=== PATIENT | female | born 1940 | race Caucasian/White ===

== ENCOUNTER → 2017-03-06 | Outpatient (CLI) | payer OTHER, MEDICARE | LOC: CIMAGING 10:24 | PROVIDERS: ATTEND Family Medicine | DX: Z12.31 Encounter for screening mammogram for malignant neoplasm of breast (principal) | CPT/HCPCS: G0202 ==

== ENCOUNTER 2017-06-10 15:28 | Emergency (ER) | payer OTHER, MEDICARE ==
[2017-06-10] MEDS ORDERED: NS 500 ML IV ONE (15:41)
[2017-06-10] MEDS ORDERED: DIAZEPAM 5 MG TAB PO ONE (16:07)
[2017-06-10] MEDS ORDERED: DIAZEPAM 5 MG TAB ONE (16:07)
[2017-06-10] MEDS ORDERED: ONDANSETRON DISINTEGRATING 4 MG TAB PO ONE (16:10)
--- NOTE | 2017-06-10 16:12 | EDPHY ---
H & P Time Seen by Provider: 06/10/17 15:35 HPI/ROS: This patient plan but onset of right low back pain accompanied by vomiting x1. The patient explains that she was cleaning house in was bending forward she felt abrupt onset of sharp right paraspinous lumbar pain low down in her back that radiated toward the front described as 10/10 pain. The pain is sharp in nature. She was near her bed at that time and laid down unable to move for. Time due to the severity of the pain. She took 600 mg of ibuprofen-the 1st dose was 400 mg 90 minutes prior to arrival shortly after the incident occurred and another 200 mg just before coming in. On the way and the patient vomited x1. She attributes this nausea vomiting due to the severity of the pain. The pain has however now decreased to 4/10. She reports that the wax and wane with no clear exacerbating factors. The pain briefly radiated down her leg but is no longer radiating down the leg. The pain radiates to the right lower belly and is described as mild in the right lower belly to 3/10 achy in nature. She has driven here by private vehicle by her for further evaluation of her symptoms. ROS: No fevers or chills recently. Neuro: No numbness tingling or focal weakness. HEENT: She complains of nasal congestion over the past week or so. Pulmonary - she has a cough with feeling of chest congestion and mild increase in her shortness of breath over the past 2 days associated with this. She has chronic baseline at shortness of breath since or lobectomies as well. No pleuritic pain. No hemoptysis. Cardiovascular: No chest pain or heart palpitations. No leg pain or swelling. GI: As per HPI. No hematemesis. Today's emesis was yellow. Normal bowel movements recently. Currently 2/10 right lower quadrant abdominal pain associated with this. : She has not noticed any dysuria or hematuria recently. 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 She also reports bladder cancer and has a urologic procedure-bladder resection every 6 months or so with Dr. Dionicio Esparza-urologist. She reports this is "malignant" Pulmonary embolism complicated postop course after her 2015 lobectomy Other surgical history: Appendectomy Hysterectomy Smoking Status: Former smoker Physical Exam: General Appearance: Alert, no distress. Eyes: Pupils equal and round no pallor or injection. ENT, Mouth: Mucous membranes moist. Respiratory: There are no retractions, lungs are clear to auscultation. Cardiovascular: Regular rate and rhythm. No murmur gallop rub. No lower extremity swelling or tenderness Gastrointestinal: Normoactive, soft, minimal right lower quadrant tenderness Back: Patient has an area of muscle spasm and tenderness in the right lower lumbar paraspinous region reproduces her symptoms elicits more muscle spasm. Straight leg raise is negative bilaterally. She maintains good range of motion in forward flexion and back extension without change in her pain. Neurological: GCS 15. She maintains 2+ symmetric patellar and Achilles DTRs bilaterally in 5/5 strength in great toe dorsiflexion plantar flexion bilaterally. Skin: Warm and dry, no rashes. Musculoskeletal: Neck is supple nontender. Extremities are symmetrical, full range of motion. Psychiatric: Mood and affect normal DIFFERENTIAL DIAGNOSIS: After history and physical exam differential diagnosis was considered for bony Mets with pathological fracture and lumbar spine, low back strain with muscle spasm, disc herniation, bowel obstruction, ureteral stone, volvulus, mesenteric thrombus, bronchitis, pneumonia Constitutional: Initial Vital Signs Temperature (C) 37 C 06/10/17 15:44 Heart Rate 82 06/10/17 15:44 Respiratory Rate 16 06/10/17 15:44 Blood Pressure 141/93 H 06/10/17 15:44 O2 Sat (%) 94 06/10/17 15:44 O2 Delivery Mode Room Air O2 (L/minute) 2 Allergies/Adverse Reactions: No Known Allergies Allergy (Verified 06/10/17 15:42) Home Medications: Medication Instructions Recorded Pantoprazole Sodium [Protonix 40mg 40 mg PO DAILY PRN 08/18/14 (*)] Cefdinir [Omnicef (RX)] 300 mg PO BID #14 cap 06/10/17 Ondansetron Odt [Zofran Odt] 4 - 8 mg PO Q4PRN PRN #4 tab 06/10/17 oxyCODONE/APAP 5/325 [Percocet 1 - 2 tab PO Q4-6PRN PRN #15 tab 06/10/17 5/325 (*)] MDM/Departure - MDM Diagnostics: Two view chest x-ray: No acute abnormalities by my interpretation Imaging Results: Imaging Impressions Lumbar Spine X-Ray 06/10/17 16:07 Impression: 1. No acute fracture. 2. Multilevel degenerative disk and facet arthropathy. Chest X-Ray 06/10/17 16:13 Impression: 1. No pneumonia. 2. New retrosternal density, could possibly indicate complete right upper lobe atelectasis. Consider chest CT for further evaluation. Results called to Dr. Murcia at 5:[address] 06/10/17 17:48 Impression: 1. Moderate hiatal hernia. Might the patient's cough the related to reflux? 2. No pneumonia. 3. No evidence of recurrent or metastatic lung cancer. 4. The finding on the patient's chest x-ray is related to epicardial fat. Results discussed with Dr. Jerman Murcia at 7:00 PM. General information for patients regarding this examination can be found at [employer]. If you have questions or comments about this report, please contact me at [phone] ([facility]) or [phone] (cell). Abdomen/Pelvis CT 06/10/17 18:08 Impression: Severe right urinary tract obstruction related to a small stone that is about to pass into the urinary bladder. Results called to Dr. Jerman Murcia at 6:52 PM Attention: This CT examination is specifically designed to evaluate patients who are clinically suspected of having acute obstructive uropathy. This examination does not use radiographic contrast, and as such, provides only a limited evaluation of the abdomen, pelvis and retroperitoneum. If there is further clinical suspicion for pathological conditions other than obstructive uropathy, a complete CT evaluation of the abdomen and pelvis utilizing intravenous, oral, and rectal contrast should be considered. General information for patients regarding this examination can be found at [employer]. If you have questions or comments about this report, please contact me at ([facility]) or [phone] (cell). Imaging: Discussed imaging studies w/ extruding department supervisor Radiologist, I viewed and interpreted images myself Medications Given: Discontinued Medications Hydrocodone Bitart/Acetaminophen ([place] 5/325) 1 tab PO EDNOW ONE Stop: 06/10/17 16:20 Last Admin: 06/10/17 16:20 Dose: 1 tab Diazepam (Valium) 5 mg PO EDNOW ONE Stop: 06/10/17 16:08 Last Admin: 06/10/17 16:13 Dose: 5 mg Diphenhydramine HCl (Benadryl Injection) 25 mg IVP EDNOW ONE Stop: 06/10/17 18:56 Last Admin: 06/10/17 19:12 Dose: 25 mg Hydromorphone HCl (Dilaudid) 0.4 mg IVP EDNOW ONE Stop: 06/10/17 18:08 Last Admin: 06/10/17 18:00 Dose: 0.4 mg Sodium Chloride (Ns) 500 mls @ 1,000 mls/hr IV EDNOW ONE PRN Reason: Protocol Stop: 06/10/17 16:10 Last Admin: 06/10/17 16:45 Dose: 500 mls Ceftriaxone Sodium 1 gm/ (Sodium Chloride) 100 mls @ 200 mls/hr IV EDNOW ONE PRN Reason: Protocol Stop: 06/10/17 18:33 Last Admin: 06/10/17 18:58 Dose: 100 mls Sodium Chloride (Ns) 1,000 mls @ 0 mls/hr IV ONCE ONE; Wide Open PRN Reason: Protocol Stop: 06/10/17 18:32 Last Admin: 06/10/17 19:03 Dose: 1,000 mls Ketorolac Tromethamine (Toradol) 15 mg IVP EDNOW ONE Stop: 06/10/17 19:04 Last Admin: 06/10/17 19:13 Dose: 15 mg Metoclopramide HCl (Reglan Injection) 10 mg IVP EDNOW ONE Stop: 06/10/17 18:56 Last Admin: 06/10/17 19:13 Dose: 10 mg Morphine Sulfate (Morphine) 4 mg IVP EDNOW ONE Stop: 06/10/17 16:28 Last Admin: 06/10/17 17:26 Dose: 4 mg Ondansetron HCl (Zofran Odt) 4 mg PO EDNOW ONE Stop: 06/10/17 16:11 Last Admin: 06/10/17 16:16 Dose: 4 mg Ondansetron HCl (Zofran) 4 mg IVP EDNOW ONE Stop: 06/10/17 17:14 Last Admin: 06/10/17 17:25 Dose: 4 mg ED Course/Re-evaluation: IV access required 3 attempts prior to success. She is treated with sublingual Zofran for nausea during this. She also received 5 mg Valium dose orally and a Percocet dose for which she perceived as low back spasms initially Patient had emesis. IV is established on patient started on a normal saline bolus, IV Zofran with initial relief of his nausea, 4 mg morphine IV With her current nausea vomiting and ongoing pain severe intensity colicky in nature. Patient then treated with Reglan 10 mg IV, Benadryl 25 mg IV and Dilaudid 0.4 mg IV finally with relief down to 3/10 pain followed by Toradol 15 mg IV Initial normal saline boluses 500 mL. She is then treated with a L normal saline bolus. Dr. Brand called to discuss the chest x-ray concerned about potential retrocardiac mass since prior chest x-ray. Given this patient's history of squamous cell carcinoma with 2 lobectomies his well as history of coughing currently, he suggested proceeding with CT chest with IV contrast for further evaluation Review of the patient's urinalysis shows both pyuria and hematuria as well as bacteria. Given this finding in the colicky nature of her pain will also proceed with CT abdomen pelvis without contrast. I reviewed the patient's radiographic findings with her-CT chest revealed no pneumonia or recurrence of cancer. The plain film finding noted by Dr. Brand correspond to a retrocardiac fat pad. The CT abdomen pelvis revealed a 3 mm distal ureteral stone with significant associated hydronephrosis on the right side. Patient is treated with ceftriaxone 1 g IV and urine culture added on. This is to treat her pyuria and bacteria concerning for UTI associated with ureteral stone. The time discharge patient feels significantly improved with resolution of nausea vomiting. She is tolerating p.o. intake. Her pain is down to minimal discomfort. I counseled her regarding her diagnosis of the distal ureteral stone and UTI. Will send her out on Omnicef, Zofran plan for ibuprofen and Percocet in addition if needed. She will follow up Dr. Martinez, urologist for any ongoing symptoms despite the treatment plan. - Depart Disposition: Home, Routine, Self-Care Clinical Impression: Ureteral stone with hydronephrosis Urinary tract infection Qualifiers: Urinary tract infection type: site unspecified Hematuria presence: with hematuria Qualified Code(s): N39.0 - Urinary tract infection, site not specified Vomiting Qualifiers: Vomiting type: unspecified Vomiting Intractability: non-intractable Nausea presence: with nausea Qualified Code(s): R11.2 - Nausea with vomiting, unspecified Condition: Good Instructions: Oxycodone/Acetaminophen (By mouth), Urinary Tract Infection in Women (ED), Ureteral Stones (ED) Additional Instructions: Diagnoses: 1. Ureteral stone with hydronephrosis 2. Urinary tract infection 3. Cough 4. Cough Plan: Drink plenty fluids Omnicef antibiotic-1st dose tomorrow [id number] mg per 6 hours few times a day as needed for pain Tylenol or Percocet in addition if needed. No driving, alcohol or come Percocet Zofran for nausea vomiting if needed Filter your urine to document passage of the stone Follow up with urologist for any ongoing symptoms despite treatment plan Return for any significant worsening despite treatment plan. Prescriptions: Cefdinir [Omnicef (RX)] 300 mg PO BID #14 cap Ondansetron Odt [Zofran Odt] 4 - 8 mg PO Q4PRN PRN #4 tab PRN Reason: Vomiting oxyCODONE/APAP 5/325 [Percocet 5/325 (*)] 1 - 2 tab PO Q4-6PRN PRN #15 tab PRN Reason: Pain Referrals: Leydi Morales MD [Primary Care Provider] - As per Instructions Osiel Martinez MD [Medical Doctor] - As per Instructions
[2017-06-10] MEDS ORDERED: HYDROCODONE/APAP 5/325 TAB ONE (16:18)
[2017-06-10] MEDS ORDERED: HYDROCODONE/APAP 5/325 TAB PO ONE (16:19)
[2017-06-10 16:29] LABS: % IMMATURE GRANULYOCYTES 1.3 % (0.0-1.1); ABSOLUTE IMMATURE GRANULOCYTES 0.11 10^3/uL (0.00-0.10); ADD DIFF? NO; ADD MORPH? NO; ADD SCAN? NO; ATYPICAL LYMPHOCYTE FLAG 10 (0-99); FRAGMENT RBC FLAG 0 (0-99); HEMATOCRIT 39.8 % (38.0-47.0); HEMOGLOBIN 13.4 g/dL (12.6-16.3); LEFT SHIFT FLG 10 (0-99); LIPEMIA HEMOLYSIS FLAG 80 (0-99); MEAN CELL HEMOGLOBIN 31.5 pg (27.9-34.1); MEAN CELL HEMOGLOBIN CONCENTR. 33.7 g/dL (32.4-36.7); MEAN CELL VOLUME 93.4 fL (81.5-99.8); MEAN PLATELET VOLUME 9.6 fL (8.7-11.7); PLATELET CLUMPS FLAG 10 (0-99); PLATELET COUNT 325 10^3/uL (150-400); RED BLOOD CELL COUNT 4.26 10^6/uL (4.18-5.33); RED CELL DISTRIBUTION WIDTH 12.9 % (11.5-15.2)
[2017-06-10 16:43] LABS: ANION GAP 17 mEq/L (8-16); CALCIUM 10.1 mg/dL (8.5-10.4); CARBON DIOXIDE 24 mEq/l (22-31); CHLORIDE 100 mEq/L (97-110); CREATININE 0.7 mg/dL (0.6-1.0); GLOMERULAR FILTRATION RATE > 60; GLUCOSE 128 mg/dL (70-100); POTASSIUM 3.8 mEq/L (3.5-5.2); SODIUM 141 mEq/L (134-144)
[2017-06-10] MEDS ORDERED: ONDANSETRON 4 MG/2 ML VIAL IVP ONE (17:13)
[2017-06-10 17:18] LABS: COLOR YELLOW; LEUKOCYTE ESTERASE,URINE 2+ (NEGATIVE); NITRITE,URINE NEGATIVE (NEGATIVE); PH,URINE 5.5 (5.0-7.5)
[2017-06-10] MEDS ORDERED: IOPAMIDOL (ISOVUE 370) 100 ML BTL IV ONE (17:18)
[2017-06-10 17:27] LABS: WBC,URINE 15-25 /hpf (0-3)
[2017-06-10 17:28] LABS: BACTERIA 2+ /hpf (NONE SEEN); MUCUS 2+ /lpf (NONE-1+); RBC,URINE 15-25 /hpf (0-3)
[2017-06-10] MEDS ORDERED: HYDROmorphONE/DILAUDID 1 MG/ML INJ IVP ONE (18:07)
[2017-06-10] MEDS ORDERED: NS 1,000 ML IV ONE (18:31)
[2017-06-10] MEDS ORDERED: METOCLOPRAMIDE 10 MG/2 ML VIAL IVP ONE (18:55)
[2017-06-10] MEDS ORDERED: KETOROLAC 15 MG/1 ML SDV IVP ONE (19:03)
[2017-06-10 19:46] VITALS: BP 125/68; PULSE 87; RESP 18; TEMP 97.9; O2SAT 95
== END 2017-06-10 20:10 | disposition home or self-care (01) ==
LOC: CED 15:28
DX: N20.1 Calculus of ureter (principal); N13.30 Unspecified hydronephrosis; N39.0 Urinary tract infection, site not specified; B96.89 Other specified bacterial agents as the cause of diseases classified elsewhere; E86.9 Volume depletion, unspecified; Z85.51 Personal history of malignant neoplasm of bladder; Z85.828 Personal history of other malignant neoplasm of skin; Z87.891 Personal history of nicotine dependence
CPT/HCPCS: 71020; 71260; 72100; 74176; 96361; 96365; 96375; 99285; J0696; J1170; J1200; J1885; J2405; J2765; Q9967; 80048-PO; 81003-PO; 81015-PO; 85025-PO

== ENCOUNTER → 2018-03-10 | Outpatient (CLI) | payer OTHER, MEDICARE | LOC: CIMAGING 08:16 | PROVIDERS: ATTEND Family Medicine | DX: Z12.31 Encounter for screening mammogram for malignant neoplasm of breast (principal); Z80.3 Family history of malignant neoplasm of breast ==

== ENCOUNTER 2018-09-15 06:32 | Emergency (ER) | payer OTHER, MEDICARE ==
[2018-09-15 06:51] VITALS: BP 128/75
--- NOTE | 2018-09-15 07:04 | EDPHY ---
H & P Stated Complaint: Mechanical fall, R shoulder pain Time Seen by Provider: 09/15/18 06:58 HPI/ROS: CHIEF COMPLAINT: Right shoulder pain HISTORY OF PRESENT ILLNESS: Patient is a 58-year-old female who tripped yesterday evening over a dog gait. She fell and landed onto her right shoulder. Her arm was tucked against her body. She has had pain in her right shoulder and clavicle ever since. She has taken ibuprofen for pain with mild improvement. She did not hit her head. She denies neck pain. No weakness numbness or paresthesias. She did not injure her hip. She is ambulating without difficulty. Severity: Moderate Modifying factors: None REVIEW OF SYSTEMS: Constitutional: denies: chills, fever, recent illness, recent injury EENTM: denies: blurred vision, double vision, nose congestion Respiratory: denies: cough, shortness of breath Cardiac: denies: chest pain, irregular heart rate, lightheadedness, palpitations Gastrointestinal/Abdominal: denies: abdominal pain, diarrhea, nausea, vomiting, blood streaked stools Genitourinary: denies: dysuria, frequency, hematuria, pain Musculoskeletal: See HPI Skin: denies: lesions, rash, jaundice, bruising Neurological: denies: headache, numbness, paresthesia, tingling, dizziness, weakness Hematologic/Lymphatic: denies: blood clots, easy bleeding, easy bruising Immunologic/allergic: denies: HIV/AIDS, transplant 10 systems reviewed and negative except as noted EXAM: GENERAL: Well-appearing, well-nourished and in no acute distress. HEAD: Atraumatic, normocephalic. EYES: Pupils equal round and reactive to light, extraocular movements intact, sclera anicteric, conjunctiva are normal. ENT: TMs normal, nares patent, oropharynx clear without exudates. Moist mucous membranes. NECK: Normal range of motion, supple without lymphadenopathy or JVD. LUNGS: Breath sounds clear to auscultation bilaterally and equal. No wheezes rales or rhonchi. HEART: Regular rate and rhythm without murmurs, rubs or gallops. ABDOMEN: Soft, nontender, normoactive bowel sounds. No guarding, no rebound. No masses appreciated. BACK: No CVA tenderness, no spinal tenderness, step-offs or deformities EXTREMITIES: Right shoulder and clavicular tenderness, no obvious step-off or deformity. No proximal humerus tenderness. No elbow or wrist pain. Normal pulses distally. Normal sensation distally. NEUROLOGICAL: Cranial nerves II through XII grossly intact. Normal speech, normal gait. 5/5 strength, normal movement in all extremities, normal sensation , normal reflexes PSYCH: Normal mood, normal affect. SKIN: Warm, dry, normal turgor, no visible rashes or lesions. Source: Patient Exam Limitations: No limitations - Personal History Current Tetanus/Diphtheria Vaccine: Unsure Current Tetanus Diphtheria and Acellular Pertussis (TDAP): Yes - Medical/Surgical History Hx Asthma: No Hx Chronic Respiratory Disease: No Hx Diabetes: No Hx Cardiac Disease: No Hx Renal Disease: No Hx Cirrhosis: No Hx Alcoholism: No Hx HIV/AIDS: No Hx Splenectomy or Spleen Trauma: No Other PMH: bladder Cancer,lobectomy RML and MARY,hysterectomy,GERD, left rotator cuff sx - Family History Significant Family History: No pertinent family hx - Social History Smoking Status: Former smoker Alcohol Use: None Constitutional: Initial Vital Signs Temperature (C) 37.0 C 09/15/18 06:47 Heart Rate 84 09/15/18 06:47 Respiratory Rate 18 09/15/18 06:47 Blood Pressure 128/75 H 09/15/18 06:47 O2 Sat (%) 94 09/15/18 06:47 O2 Delivery Mode Room Air Allergies/Adverse Reactions: No Known Allergies Allergy (Verified 06/10/17 15:42) Home Medications: Medication Instructions Recorded Pantoprazole Sodium [Protonix 40mg 40 mg PO DAILY PRN 08/18/14 (*)] Medical Decision Making - Diagnostics Imaging Results: Imaging Impressions Clavicle X-Ray 09/15/18 07:02 Impression: Right clavicular fracture. Humerus X-Ray 09/15/18 07:02 Impression: Right humerus negative for fracture. 2 views right clavicle Reason for examination: Pain following trauma. Findings: There is a mildly comminuted and slightly angulated midshaft right clavicular fracture. The acromioclavicular joint is not widened. Impression: Right clavicular fracture. Imaging: Discussed imaging studies w/ lithograph designer Radiologist Procedures: Procedure: Splint placement. A sling was applied. After application of the splint I returned and re- examined the patient. The splint was adequately immobilizing the joint and distal to the splint the patient's circulation and sensation was intact. ED Course/Re-evaluation: Patient has a middle 3rd and distal 3rd clavicle fracture with angulation but no displacement. Will consult Orthopedics and place in a sling. Spoke with Orthopedics JONATAN who was unsure about surgery for the distal 3rd fracture. Will consult Efren and call back. Patient is very eager to go because her [id number] is today. She does not wish to wait. Placed in a sling for now. 8:00 a.m. orthopedics called back and states that this is likely nonsurgical. Differential Diagnosis: Partial list of the Differential diagnosis considered include but were not limited to; clavicle fracture, AC separation, proximal humerus fracture and although unlikely based on the history and physical exam, I also considered neck injury, head injury, rib fracture. I discussed these differential diagnoses and the plan with the patient as well as the usual and expected course. The patient understands that the diagnosis is provisional and that in medicine we are not always correct and that further workup is often warranted. Usual and customary warnings were given. All of the patient's questions were answered. The patient was instructed to return to the emergency department should the symptoms at all worsen or return, otherwise to followup with the physician as we discussed. Departure - Departure Disposition: Home, Routine, Self-Care Clinical Impression: Clavicle fracture, shaft Qualifiers: Encounter type: initial encounter Fracture type: closed Fracture alignment: displaced Laterality: right Qualified Code(s): S42.021A - Displaced fracture of shaft of right clavicle, initial encounter for closed fracture Condition: Fair Instructions: Clavicle Fracture (ED) Referrals: Mireya De Leon DO [Primary Care Provider] - As per Instructions Baldev Schwartz MD [Medical Doctor] - 5-7 days, call for appt.
== END 2018-09-15 07:58 | disposition home or self-care (01) ==
LOC: CED 06:32
DX: S42.021A Displaced fracture of shaft of right clavicle, initial encounter for closed fracture (principal); W18.09XA Striking against other object with subsequent fall, initial encounter
CPT/HCPCS: 73000; 73060; 99283; A4565

== ENCOUNTER → 2019-01-17 | Outpatient (CLI) | payer OTHER, MEDICARE | LOC: CIMAGING 17:08 ==